=== PATIENT | female | born 1950 | race Caucasian/White ===

== ENCOUNTER → 2018-03-14 07:55 | Outpatient (CLI) | payer MEDICARE, OTHER, SELFPAY ==
[2018-03-14 09:25] LABS: Blood Urea Nitrogen 24 mg/dL (7-17); Estimated Glomerular Filt Rate > 60.0 mL/min (>60)
== END ==
PROVIDERS: PCP Internal Medicine; Visit Provider Internal Medicine
DX: E11.9 Type 2 diabetes mellitus without complications (principal); I10 Essential (primary) hypertension; E78.5 Hyperlipidemia, unspecified
CPT/HCPCS: 36415; 82565; 84520

== ENCOUNTER → 2018-03-16 13:29 | Outpatient (CLI) | payer MEDICARE, OTHER, SELFPAY ==
--- NOTE | 2018-03-16 | DI.MRI.S_ITS ---
PROCEDURE: MR MCDONALD WO/W CON INDICATIONS: 67 year-old female with palpable lower abdominal mass lesion. TECHNIQUE: Noncontrast coronal T1 spin echo and STIR, sagittal T1 spin echo with fat saturation and STIR, axial T1 spin echo and T2 fast spin echo with fat saturation. After the administration of contrast, axial/sagittal/coronal T1 spin echo with fat saturation through the pelvis. COMPARISON: [facility], CT, ABDOMEN WITH CONTRAST, 03/15/2017, 10:19. [facility], CT, ABDOMEN/PELVIS WITH CONTRAST, 09/12/2015, 8:08. FINDINGS: Skin marker denotes the site of clinical concern in the right parasymphyseal region. Image quality: Several sequences are degraded by respiratory motion. Bones: The visualized bone marrow demonstrates normal signal on all sequences. The overlying cortex appears intact. No abnormal intraosseous enhancement. There is lower lumbar spine disc degeneration. Soft tissues: At the site of clinical concern in the right parasymphyseal region, no soft tissue masses are visualized. No inguinal hernias or adenopathy. The deeper scanned muscles demonstrate normal overall bulk and internal signal. Subcutaneous tissues appear normal as well. There is mild sigmoid colon diverticulosis. Uterus and ovaries appear normal in size. Bladder wall thickness is normal. No free pelvic fluid. IMPRESSION: 1. No imaging explanation for palpable mass in the right parasymphyseal region. 2. Mild sigmoid colon diverticulosis. Dictated by: Godfrey Garcia M.D. on 03/16/2018 at 15:26 Approved by: Godfrey Garcia M.D. on 03/16/2018 at 15:36
--- NOTE | 2018-03-16 | DI.MRI.S_ITS ---
PROCEDURE: MR SHOULDER RT WO CON INDICATIONS: 67 year-old female with right shoulder pain since May 2017. TECHNIQUE: Noncontrast oblique coronal T2 fast spin echo with fat saturation, oblique sagittal T1 spin echo and T2 fast spin echo with fat saturation, axial T1 spin echo and T2 fast spin echo with fat saturation through the shoulder. COMPARISON: None. FINDINGS: Image quality: Excellent. Rotator cuff: There is 6 mm wide low-grade intrasubstance partial thickness tear involving the anterior supraspinatus tendon insertional footprint on coronal image 8 and sagittal image 7. There is background supraspinatus tendon signal heterogeneity from tendinopathy. The infraspinatus and subscapularis tendons appear intact. Sagittal images demonstrate no rotator cuff muscle atrophy. Bones and bursae: No bone marrow contusions or fractures. There is mild acromioclavicular joint degeneration, with osseous and synovial hypertrophy. The acromion demonstrates conventional anatomy, without an os acromiale. Curvilinear soft tissue ganglion cyst wraps around the anterior edge of the supraspinatus muscle, measuring 1.5 x 0.8 x 0.4 cm. Capsule and soft tissues: There is small glenohumeral joint effusion within the superior subscapularis recess. In the absence of intra-articular contrast, the labrum and glenohumeral ligaments appear intact. The long head of the biceps tendon demonstrates normal location, with linear intrasubstance signal superior to the humeral head. There is rotator interval fibrosis, obscuring the coracohumeral ligament. IMPRESSION: 1. Low-grade intrasubstance partial thickness tear involves the anterior 6 mm of the supraspinatus tendon insertional footprint, on a background of tendinopathy. 2. Mild acromioclavicular joint degeneration. 3. 1.5 cm curvilinear soft tissue ganglion cyst wraps around the anterior edge of the supraspinatus muscle. 4. Intrasubstance partial thickness tear of the intra-articular long head of the biceps tendon. 5. Rotator interval fibrosis would raise the question of adhesive capsulitis. Dictated by: Godfrey Garcia M.D. on 03/16/2018 at 14:21 Approved by: Godfrey Garcia M.D. on 03/16/2018 at 14:29
== END ==
PROVIDERS: Family Provider Internal Medicine; PCP Internal Medicine; Visit Provider Internal Medicine
DX: M75.101 Unspecified rotator cuff tear or rupture of right shoulder, not specified as traumatic (principal); M19.011 Primary osteoarthritis, right shoulder; R19.09 Other intra-abdominal and pelvic swelling, mass and lump; M67.411 Ganglion, right shoulder
CPT/HCPCS: 72197; 73221

== ENCOUNTER → 2018-09-05 07:25 | Outpatient (CLI) | payer MEDICARE, OTHER, SELFPAY ==
[2018-09-05 09:07] LABS: Hemoglobin A1C% w Est Avg Glu 5.8 % (4.0-6.0)
[2018-09-05 09:19] LABS: Alanine Aminotransferase 48 IU/L (9-52); Aspartate Aminotransferase 37 IU/L (14-36); BUN Creatinine Ratio 27.5 (6-22); Blood Urea Nitrogen 22 mg/dL (7-17); Calcium 9.6 mg/dL (8.4-10.2); Carbon Dioxide 29 mmol/L (22-32); Chloride 101 mmol/L (98-107); Cholesterol 173 mg/dL (140-199); Estimated Glomerular Filt Rate > 60.0 mL/min (>60); Glucose 118 mg/dL (80-110); HDL Cholesterol 41 mg/dL (40-60); HEMOLYSIS < 15 (0-50); LDL Cholesterol Calculated 89 mg/dL (<100); Potassium 3.9 mmol/L (3.4-5.1); Sodium 143 mmol/L (137-145); Triglycerides 216 mg/dL (35-150)
[2018-09-05 10:19] LABS: TSH w/ Reflex to FT4 4.06 uIU/mL (0.47-4.68)
== END ==
PROVIDERS: PCP Internal Medicine; Visit Provider Internal Medicine
DX: E11.9 Type 2 diabetes mellitus without complications (principal); I10 Essential (primary) hypertension; E78.5 Hyperlipidemia, unspecified; E04.1 Nontoxic single thyroid nodule
CPT/HCPCS: 36415; 80048; 80061; 83036; 84443; 84450; 84460

== ENCOUNTER → 2018-09-16 13:32 | Outpatient (CLI) | payer MEDICARE, OTHER, SELFPAY ==
--- NOTE | 2018-09-16 13:43 | DI.US.S_ITS ---
PROCEDURE: US THYROID INDICATIONS: ROUTINE TECHNIQUE: Real-time scanning was performed of the thyroid gland, with image documentation. COMPARISON: [facility], US, THYROID, 05/01/2010, 8:59. FINDINGS: Right: Thyroid lobe measures 3.8 x 1.3 x 1.8 cm, and is homogeneous in echotexture. Left: Thyroid lobe measures 3.5 x 1.6 x 1.4 cm, and is homogenous in echotexture. Isthmus: 3.0 mm thick. Nodule number: 1 Location: Right superior Size: Unchanged at 0.3 x 0.2 x 0.4 cm. Composition: Solid Echogenicity: Hypoechoic Shape: wider than tall. Margins: Smooth Echogenic foci: None Total points: 4 ACR TI-RADS category: Moderately suspicious Nodule number: 2 Location: Right inferior Size: Unchanged at 0.3 x 0.2 x 0.3 cm. Composition: Solid Echogenicity: Hypoechoic Shape: wider than tall. Margins: Smooth Echogenic foci: None Total points: 4 ACR TI-RADS category: Moderately suspicious Nodule number: 3 Location: Left superior Size: New at 0.3 x 0.2 x 0.4 cm. Composition: Solid Echogenicity: Hypoechoic Shape: wider than tall. Margins: Smooth Echogenic foci: None Total points: 4 ACR TI-RADS category: Moderately suspicious Nodule number: 4 Location: Left inferior Size: Unchanged at 0.5 x 0.4 x 0.3 cm. Composition: Cystic Echogenicity: Anechoic Shape: wider than tall. Margins: Smooth Echogenic foci: Internal punctate echogenic foci Total points: 3 ACR TI-RADS category: Mildly suspicious IMPRESSION: Stable thyroid nodules as above and there is a new nodule involving the left superior thyroid. Recommend continued followup ultrasound as detailed below. ACR TI-RADS definitions and recommendations: TI-RADS 1 (benign): 0 points. FNA not needed. TI-RADS 2 (not suspicious): 2 points. FNA not needed. TI-RADS 3 (mildly suspicious): 3 points. * FNA if 2.5 cm or larger, follow up if 1.5 cm or larger (at 1, 3, and 5 years). TI-RADS 4 (moderately suspicious): 4-6 points. * FNA if 1.5 cm or larger, follow up if 1 cm or larger (at 1, 2, 3, and 5 years). TI-RADS 5 (highly suspicious): 7 points or more. * FNA if 1 cm or larger, follow up if 0.5 cm or larger (every year for 5 years). Dictated by: Scooter BAILEY Interpreted: Doroteo Lao MD on 09/16/2018 at 15:48 Approved by: Doroteo Lao M.D. on 09/16/2018 at 19:02
== END ==
PROVIDERS: PCP Internal Medicine; Visit Provider Internal Medicine
DX: Z00.00 Encounter for general adult medical examination without abnormal findings (principal); M85.852 Other specified disorders of bone density and structure, left thigh; Z78.0 Asymptomatic menopausal state; E04.2 Nontoxic multinodular goiter; E11.9 Type 2 diabetes mellitus without complications; Z82.62 Family history of osteoporosis
CPT/HCPCS: 76536; 77080

== ENCOUNTER → 2018-10-17 14:36 | Outpatient (CLI) | payer MEDICARE, OTHER, SELFPAY ==
--- NOTE | 2018-10-17 | DI.US.S_ITS ---
PROCEDURE: US ABDOMEN COMPLETE INDICATIONS: R UPPER QUADRANT PAIN TECHNIQUE: Real-time scanning was performed of the abdominal and retroperitoneal organs, with image documentation. COMPARISON: None. FINDINGS: Liver: Liver is normal in size and homogeneous in echotexture, diffusely hyperechoic consistent with fatty infiltration. Gallbladder: The gallbladder appears normal Biliary ducts: Intrahepatic bile ducts are non-dilated. Extrahepatic bile duct caliber measures 4.0 mm. Normal is 6-7 mm or less in diameter, or 10 mm or less post-cholecystectomy. Pancreas: Visualized portions of the pancreas are sonographically normal. Spleen: Spleen is normal in size and homogeneous in echotexture. Kidneys: Kidneys are normal in size and echotexture. Right kidney measures 10.5 cm long; left kidney measures 10.9 cm long. No hydronephrosis or nephrolithiasis. No solid masses. Aorta: Visualized aorta is normal in caliber at less than 3 cm. Iliacs: Proximal common iliac arteries are normal in caliber at less than 2.5 cm. IVC: Intrahepatic inferior vena cava is patent. Miscellaneous: No free abdominal fluid. IMPRESSION: Hepatic steatosis is present, but no hepatic mass lesion or evidence of varices or ascites is found. No alternative source of right upper quadrant pain is identified. Dictated by: Max Wheeler M.D. on 10/17/2018 at 15:47 Approved by: Max Wheeler M.D. on 10/17/2018 at 15:48
== END ==
PROVIDERS: PCP Internal Medicine; Visit Provider Internal Medicine
DX: R10.11 Right upper quadrant pain (principal); K76.0 Fatty (change of) liver, not elsewhere classified
CPT/HCPCS: 76700

== ENCOUNTER → 2019-03-06 08:01 | Outpatient (CLI) | payer MEDICARE, OTHER, SELFPAY ==
[2019-03-06 09:32] LABS: Alanine Aminotransferase 46 IU/L (9-52); Aspartate Aminotransferase 33 IU/L (14-36); BUN Creatinine Ratio 21.3 (6-22); Blood Urea Nitrogen 17 mg/dL (7-17); Calcium 9.8 mg/dL (8.4-10.2); Carbon Dioxide 30 mmol/L (22-32); Chloride 100 mmol/L (98-107); Cholesterol 169 mg/dL (140-199); Estimated Glomerular Filt Rate > 60.0 mL/min (>60); Glucose 119 mg/dL (80-110); HDL Cholesterol 43 mg/dL (40-60); HEMOLYSIS < 15 (0-50); LDL Cholesterol Calculated 81 mg/dL (<100); Potassium 4.1 mmol/L (3.4-5.1); Sodium 137 mmol/L (137-145); Triglycerides 227 mg/dL (35-150)
== END ==
PROVIDERS: PCP Internal Medicine; Visit Provider Internal Medicine
DX: I10 Essential (primary) hypertension (principal); E78.5 Hyperlipidemia, unspecified
CPT/HCPCS: 36415; 80048; 80061; 84450; 84460

== ENCOUNTER → 2019-09-04 07:03 | Outpatient (CLI) | payer MEDICARE, OTHER, SELFPAY ==
--- NOTE | 2019-09-04 | DI.RAD.S_ITS ---
PROCEDURE: XR CHEST 2V INDICATIONS: COUGH TECHNIQUE: 2 views of the chest were acquired. COMPARISON: None. FINDINGS: Surgical changes and devices: None. Lungs and pleura: Lungs are clear. No pleural effusions or pneumothorax. Mediastinum: Mediastinal contours are normal. Heart size is normal. Bones and chest wall: No suspicious bony abnormalities. Soft tissues appear unremarkable. IMPRESSION: No source of cough is found. Dictated by: Max Wheeler M.D. on 09/04/2019 at 9:16 Approved by: Max Wheeler M.D. on 09/04/2019 at 9:16
[2019-09-04 08:00] LABS: Alanine Aminotransferase 43 IU/L (<35); Aspartate Aminotransferase 38 IU/L (14-36); BUN Creatinine Ratio 23.8 (6-22); Blood Urea Nitrogen 19 mg/dL (7-17); Calcium 9.9 mg/dL (8.4-10.2); Carbon Dioxide 29 mmol/L (22-32); Chloride 100 mmol/L (98-107); Cholesterol 199 mg/dL (140-199); Estimated Glomerular Filt Rate > 60.0 mL/min (>60); Glucose 118 mg/dL (80-110); HDL Cholesterol 41 mg/dL (40-60); HEMOLYSIS < 15 (0-50); LDL Cholesterol Calculated 95 mg/dL (<100); Potassium 3.8 mmol/L (3.4-5.1); Sodium 139 mmol/L (137-145); Triglycerides 314 mg/dL (35-150)
[2019-09-04 08:11] LABS: Hemoglobin A1C% w Est Avg Glu 5.7 % (4.0-6.0)
== END ==
PROVIDERS: PCP Internal Medicine; Visit Provider Internal Medicine
DX: R05 Cough (principal); I10 Essential (primary) hypertension; E11.9 Type 2 diabetes mellitus without complications; E78.5 Hyperlipidemia, unspecified
CPT/HCPCS: 36415; 71046; 80048; 80061; 83036; 84450; 84460

== ENCOUNTER → 2019-12-07 14:12 | Outpatient (ROUT) | payer MEDICARE, OTHER, SELFPAY ==
[2019-12-07 16:14] LABS: BUN Creatinine Ratio 26.3 (6-22); Blood Urea Nitrogen 21 mg/dL (7-17); Calcium 10.3 mg/dL (8.4-10.2); Carbon Dioxide 32 mmol/L (22-32); Chloride 99 mmol/L (98-107); Estimated Glomerular Filt Rate > 60.0 mL/min (>60); Glucose 117 mg/dL (80-110); HEMOLYSIS < 15 (0-50); Potassium 4.1 mmol/L (3.4-5.1); Sodium 138 mmol/L (137-145)
== END ==
PROVIDERS: PCP Internal Medicine; Visit Provider Internal Medicine
DX: E11.9 Type 2 diabetes mellitus without complications (principal); R10.11 Right upper quadrant pain
CPT/HCPCS: 80048; 83036

== ENCOUNTER → 2019-12-11 10:23 | Outpatient (CLI) | payer MEDICARE, OTHER, SELFPAY ==
--- NOTE | 2019-12-11 | DI.CT.S_ITS ---
PROCEDURE: CT ABDOMEN W CON INDICATIONS: Right upper quadrant pain TECHNIQUE: After the administration of oral and intravenous contrast, 5 mm thick sections acquired from the diaphragms to the iliac crests. 5 mm thick coronal and sagittal reformats were acquired. For radiation dose reduction, the following was used: automated exposure control, adjustment of mA and/or kV according to patient size. COMPARISON: [facility], CT, ABDOMEN WITH CONTRAST, 03/15/2017, 10:19. FINDINGS: Image quality: Excellent. Lung bases: Lung bases are clear. Heart size is normal. Solid organs: Liver is normal in size and enhancement. Gallbladder appears normal. Biliary system is non dilated. Pancreas enhances normally. Spleen is normal in size and enhancement. No adrenal nodules. Kidneys are normal in size, without hydronephrosis. Peritoneum and bowel: Contrast enhanced bowel loops appear normal in caliber. No free fluid or air. Nodes and vessels: No retroperitoneal or mesenteric adenopathy by size criteria. Aorta and inferior vena cava are normal in size. Bones: No suspicious bony lesions. No vertebral body compression fractures. Miscellaneous: No ventral hernias. IMPRESSION: Normal for age, source of current reported right upper quadrant pain is not identified. Dictated by: Max Wheeler M.D. on 12/11/2019 at 15:14 Approved by: Max Wheeler M.D. on 12/11/2019 at 15:15
== END ==
PROVIDERS: PCP Internal Medicine; Referring Provider Internal Medicine; Visit Provider Internal Medicine
DX: R10.11 Right upper quadrant pain (principal)
CPT/HCPCS: 74160; Q9967

== ENCOUNTER → 2020-07-02 08:21 | Outpatient (CLI) | payer MEDICARE, OTHER, SELFPAY ==
[2020-07-02 09:54] LABS: Alanine Aminotransferase 40 IU/L (<35); Albumin 4.3 g/dL (3.5-5.0); Albumin Globulin Ratio 1.6 (1.0-2.8); Alkaline Phosphatase 44 U/L (38-126); Aspartate Aminotransferase 32 IU/L (14-36); BUN Creatinine Ratio 28.8 (6-22); Bilirubin Total 1.1 mg/dL (0.2-1.3); Blood Urea Nitrogen 23 mg/dL (7-17); Calcium 9.8 mg/dL (8.4-10.2); Carbon Dioxide 29 mmol/L (22-32); Chloride 102 mmol/L (98-107); Cholesterol 153 mg/dL (140-199); Estimated Glomerular Filt Rate > 60.0 mL/min (>60); Globulin 2.7 g/dL (1.7-4.1); Glucose 109 mg/dL (80-110); HDL Cholesterol 41 mg/dL (40-60); HEMOLYSIS < 15 (0-50); LDL Cholesterol Calculated 66 mg/dL (<100); Potassium 4.3 mmol/L (3.4-5.1); Sodium 138 mmol/L (137-145); Triglycerides 228 mg/dL (35-150)
[2020-07-02 10:49] LABS: Hemoglobin A1C% w Est Avg Glu 5.7 % (4.0-6.0)
== END ==
PROVIDERS: PCP Internal Medicine; Referring Provider Internal Medicine; Visit Provider Internal Medicine
DX: I10 Essential (primary) hypertension (principal); E11.9 Type 2 diabetes mellitus without complications; E78.5 Hyperlipidemia, unspecified
CPT/HCPCS: 36415; 80053; 80061; 83036

== ENCOUNTER → 2020-10-31 12:41 | Outpatient (CLI) | payer MEDICARE, OTHER, SELFPAY ==
[2020-10-31] MEDS: COVID-19 VACC #1, MRNA(MOD) 100 MCG/0.5 ML VIAL IM (12:47)
== END ==
PROVIDERS: PCP Internal Medicine; Visit Provider Internal Medicine
DX: Z23 Encounter for immunization (principal)
CPT/HCPCS: 0011A; 91301

== ENCOUNTER → 2020-11-28 12:26 | Outpatient (CLI) | payer MEDICARE, OTHER, SELFPAY ==
[2020-11-28] MEDS: COVID-19 VACC #2, MRNA(MOD) 100 MCG/0.5 ML VIAL IM (12:33)
== END ==
PROVIDERS: PCP Internal Medicine; Visit Provider Internal Medicine
DX: Z23 Encounter for immunization (principal)
CPT/HCPCS: 0012A; 91301

== ENCOUNTER → 2021-01-20 08:00 | Outpatient (CLI) | payer MEDICARE, OTHER, SELFPAY ==
[2021-01-20 09:01] LABS: Hemoglobin A1C% w Est Avg Glu 5.6 % (4.0-6.0)
[2021-01-20 09:17] LABS: Alanine Aminotransferase 37 IU/L (<35); Albumin 4.3 g/dL (3.5-5.0); Albumin Globulin Ratio 1.7 (1.0-2.8); Alkaline Phosphatase 44 U/L (38-126); Aspartate Aminotransferase 34 IU/L (14-36); BUN Creatinine Ratio 23.1 (6-22); Bilirubin Total 1.2 mg/dL (0.2-1.3); Blood Urea Nitrogen 18 mg/dL (7-17); Calcium 9.9 mg/dL (8.4-10.2); Carbon Dioxide 29 mmol/L (22-32); Chloride 101 mmol/L (98-107); Cholesterol 164 mg/dL (140-199); Estimated Glomerular Filt Rate > 60.0 mL/min (>60); Globulin 2.6 g/dL (1.7-4.1); Glucose 111 mg/dL (80-110); HDL Cholesterol 46 mg/dL (40-60); HEMOLYSIS < 15 (0-50); LDL Cholesterol Calculated 70 mg/dL (<100); Potassium 4.5 mmol/L (3.4-5.1); Sodium 136 mmol/L (137-145); Total Protein 6.9 g/dL (6.3-8.2); Triglycerides 241 mg/dL (35-150)
[2021-01-20 10:48] LABS: Creatinine Urine Random 141.3 mg/dL
[2021-01-20 10:54] LABS: Microalbumin Urine Random < 0.6 mg/dL (0-1.6)
== END ==
PROVIDERS: PCP Internal Medicine; Referring Provider Internal Medicine; Visit Provider Internal Medicine
DX: E11.9 Type 2 diabetes mellitus without complications (principal); I10 Essential (primary) hypertension; E78.5 Hyperlipidemia, unspecified
CPT/HCPCS: 36415; 80053; 80061; 82043; 82570; 83036

== ENCOUNTER → 2021-04-14 11:44 | Outpatient (CLI) | payer MEDICARE, OTHER, SELFPAY ==
[2021-04-14 13:24] LABS: COVID19 -Nasal RAPID Negative (Negative)
== END ==
PROVIDERS: PCP Internal Medicine; Visit Provider Physician Assistant
DX: Z01.812 Encounter for preprocedural laboratory examination (principal); Z20.822 Contact with and (suspected) exposure to COVID-19
CPT/HCPCS: 87635; C9803

== ENCOUNTER 2021-04-15 07:50 | Day surgery (SDC) | payer MEDICARE, OTHER, SELFPAY ==
--- NOTE | 2021-04-15 | PATH_ITS ---
[facility] Accession Number: [id number] . 01 Material submitted: . colon - TRANSVERSE COLON POLYP . 02 Diagnosis: Transverse Colon Polyp, Biopsy: Tubular adenoma. MRV 04/18/2021 1639 Local . 02 Electronically signed: . Chino Hadley MD, PhD, Pathologist NPI- [id number] . 01 Gross description: . TRANSVERSE COLON POLYP: Received in formalin are 3 fragment(s) of buck, soft tissue measuring 0.4 x 0.2 x 0.2 cm to 0.2 x 0.1 x 0.1 cm submitted entirely in 1 cassette(s) /KAMRON 04/16/2021 0452 Local . 02 Pathologist provided ICD-10: D12.3 . 02 CPT . 689952 Performed at: 01 [facility] [address] [id number] MD Evans Ling MD Phone: [phone] Performed at: [address] [facility] [address] [place], [place] [id number] MD Norah Cao MD Phone: [phone]
[2021-04-15 08:14] VITALS: BP 121/83; PULSE 88; RESP 20; TEMP 36.4; O2SAT 98; BMI 26.5
[2021-04-15] MEDS: LACTATED RINGERS 1,000 ML 100 ML IV (08:43)
--- NOTE | 2021-04-15 09:37 | PM.HP.1 ---
History of Present Illness History of Present Illness Date Patient Seen: 04/15/21 Time Patient Seen: 09:38 Chief complaint: SDC Narrative: Asymptomatic. Here for screening for colon ca. Patient History Medical History Asthma GERD (gastroesophageal reflux disease) GERD (gastroesophageal reflux disease) Hyperlipidemia Hypertension Family & Social History Family History Mother Heart disease Brother Diabetes mellitus Stroke Father Leukemia Social History: household members family Tobacco & Substance use: Smoking Status Never smoker alcohol intake frequency holiday/special occasion Substance Use Type does not use Meds Home Medications and Allergies Home Medications Medication Instructions Recorded Confirmed Type CHOLECALCIFEROL (VITAMIN D) 2,000 units PO TID #0 10/05/12 04/15/21 History COENZYME Q10/VITAMIN E (CO-Q-10 300 mg PO QDAY #0 10/05/12 History 100mg) [CALCIUM/VITAMIN D] BID #0 10/05/12 10/20/18 History ascorbic acid (vitamin C) 500 mg 500 mg PO EVERY OTHER DAY #0 10/05/12 04/15/21 History tablet aspirin 81 mg tablet,delayed 81 mg PO QDAY #0 10/05/12 04/15/21 History release cetirizine 10 mg tablet 10 mg PO QDAY #0 10/05/12 04/15/21 History albuterol sulfate 90 mcg/actuation 1 puff INH Q4HP #1 10/06/12 04/15/21 Rx aerosol inhaler (Ventolin HFA) CALCIUM CITRATE/VITAMIN D3 1 tab PO BID #0 10/10/12 04/15/21 History (Citracal-Vit D 250 MG-200 Tab) [CHAIM RED KRILL OIL] 900 mg QDAY #0 10/11/12 History potassium chloride 20 mEq 20 meq PO BID #180 11/18/12 04/15/21 Rx tablet,extended release(part/cryst) (Klor-Con M) atorvastatin 20 mg tablet (Lipitor) 20 mg PO QDAY #90 11/30/12 04/15/21 Rx lisinopril 10 1 tab PO QDAY #90 11/30/12 04/15/21 Rx mg-hydrochlorothiazide 12.5 mg tablet (Zestoretic) OMEPRAZOLE 20 mg PO QDAY #90 01/02/13 10/20/18 Rx metformin 500 mg tablet 500 mg PO BID 10/20/18 04/15/21 History Allergies Allergy/AdvReac Type Severity Reaction Status Date / Time scallops [SCALLOPS] AdvReac Intermediate gi upset Verified 04/15/21 08:38 codeine [CODEINE] AdvReac Mild NAUSEA Verified 04/15/21 08:38 Review of Systems Review of Systems ROS: Yes All systems reviewed with the patient and are negative except as otherwise documented Exam Vital Signs (past 8 hours): - 04/15/21 08:14 Temperature 97.6 F Pulse Rate 88 Respiratory Rate 20 Blood Pressure 121/83 Pulse Oximetry 98 Oxygen Delivery Method Room Air Const General: cooperative and comfortable Orientation: alert HENIA Head: normocephalic Ears: external ears normal Nose: external nose normal Face and sinus: normal facial exam Mouth: oral mucosae normal Eyes General: appearance normal, both eyes and all related structures Neck Neck: normal visual inspection Chest Chest: normal inspection of the chest Resp Effort & Inspection: normal respiratory effort Auscultation: clear to auscultation bilaterally Cardio Rate: regular rate Rhythm: regular rhythm Heart Sounds: no murmurs GI Inspection: normal to inspection Palpation: soft and No tender Auscultation: normal bowel sounds Skin General: no rashes or lesions noted and No jaundice Neuro General: patient alert and moves all extremities Cognition: normal cognition Speech: speech normal Extrem General: no pedal edema Psych Appearance: grossly normal Assessment & Plan Assessment & Plan narrative: 70yo female indicated for CRC screening. colonoscopy is planned.
--- NOTE | 2021-04-15 09:39 | PM.PREOP ---
Pre-operative Note COVID-19 COVID-19 status: Negative Result date/Date tested (Pos, Neg/Pending): 04/14/21 Interval Note History & Physical reviewed/Exam performed by Physician: Yes Changes to H&P: No ASA Class (for procedural sedation): II
[2021-04-15] MEDS: fentaNYL 250 MCG/5 ML INJ IV (09:47)
[2021-04-15] MEDS: MIDAZOLAM 5 MG/5 ML VIAL IV (09:47)
--- NOTE | 2021-04-15 10:11 | PM.OP.ENDO ---
Operative Date/Time/Diagnoses Date of procedure: 04/15/21 Time of procedure: 10:11 Pre-op diagnosis: screening Post-op diagnosis: same Procedure & Clinicians Study performed: colonoscopy with hot snare polypectomy Same procedure as scheduled: Yes Indications: Colon cancer screening Surgeon: Gino Pineda Procedure Notes SCOAP/Timeout: Done Procedure in detail: After the risks and benefits were explained, written and verbal informed consent was obtained. The patient was brought into the procedure room and placed into the left lateral decubitus position. Conscious sedation medication was applied as per nursing documentation. Digital rectal examination was accomplished. The scope was introduced into the patient and advanced under direct visualization to the cecum as identified by the appendiceal orifice and ileocecal valve. The scope was slowly withdrawn to carefully examine the mucosa for any defects or lesions. Comprehensive imaging was accomplished throughout the rectum including the dentate line. The colon was decompressed, the scope was then removed from the patient who tolerated the procedure well. bowel prep adequate 75mcg fentanyl and 3mg versed Scope withdrawal time: 9min Sedation minutes: 23 Complications: none Impression: There was some mild diverticulosis in the left colon. There was a small 5-6 mm sessile polyp in the transverse removed with hot snare. Mild internal hemorrhoids were noted on direct views. Endoscopic diagnosis 1. Colon polyp 2. Diverticulosis 3. Hemorrhoids Post-procedure Plan for aftercare: 1. Await histology. 2. Repeat colonoscopy will likely be suggested for 5 years time. Disposition: PACU
[2021-04-15 10:15] VITALS: BP 127/86; PULSE 85; RESP 15; TEMP 36.4; O2SAT 98
[2021-04-15 10:20] VITALS: BP 133/84; PULSE 86; RESP 17; TEMP 36.6; O2SAT 98
[2021-04-15 10:25] VITALS: BP 130/77; PULSE 82; RESP 15; O2SAT 97
== END 2021-04-15 10:27 | disposition home or self-care (01) ==
PROVIDERS: PCP Internal Medicine; Referring Provider Internal Medicine; Visit Provider Internal Medicine Gastroenterology
PROC: 0DJD8ZZ Inspection of Lower Intestinal Tract, Via Natural or Artificial Opening Endoscopic (ICD-10-PCS; CPT 45378; principal; 2021-04-15 09:00)
DX: Z12.11 Encounter for screening for malignant neoplasm of colon (principal); J45.909 Unspecified asthma, uncomplicated; K21.9 Gastro-esophageal reflux disease without esophagitis; E78.5 Hyperlipidemia, unspecified; I10 Essential (primary) hypertension; K64.8 Other hemorrhoids; K57.30 Diverticulosis of large intestine without perforation or abscess without bleeding; D12.3 Benign neoplasm of transverse colon
CPT/HCPCS: 45385; J2250; J3010

== ENCOUNTER → 2021-11-18 10:32 | Outpatient (CLI) | payer OTHER, SELFPAY ==
--- NOTE | 2021-11-18 | DI.MG.S_ITS ---
BILATERAL DIGITAL SCREENING MAMMOGRAM 3D/2D WITH CAD: 11/18/2021 CLINICAL: Routine screening. Comparison is made to exams dated: 09/09/2012 mammogram, 01/16/2011 mammogram, and 01/15/2010 mammogram - outside location. There are scattered fibroglandular elements in both breasts. Current study was also evaluated with a Computer Aided Detection (CAD) system. There are benign calcifications in the right breast. There also are benign vascular calcifications in both breasts. No significant masses, calcifications, or other findings are seen in either breast. There has been no significant interval change. IMPRESSION: BENIGN There is no mammographic evidence of malignancy. A 1 year screening mammogram is recommended. This exam was interpreted at Station ID: [id number]. NOTE: For mammograms, a report in lay terms will be sent to the patient. Approximately 15% of breast malignancies will not be visualized mammographically. In the management of a palpable breast mass, a negative mammogram must not discourage biopsy of a clinically suspicious lesion. Electronically Signed By: Marisela sánchez/kylah:11/18/2021 12:07:08 letter sent: Normal Exam ACR BI-RADS Category 2: Benign Finding(s) 3342F
== END ==
PROVIDERS: PCP Internal Medicine; Referring Provider Internal Medicine; Visit Provider Internal Medicine
DX: Z12.31 Encounter for screening mammogram for malignant neoplasm of breast (principal)
CPT/HCPCS: 77063; 77067

== ENCOUNTER → 2023-10-15 10:35 | Outpatient (CLI) | payer MEDICARE, SELFPAY ==
--- NOTE | 2023-10-15 10:37 | DI.RAD.S_ITS ---
Bone Density Report Name: JERILYN MONTES DE OCA Age: 73 Sex: Female Ethnicity: White Date of : 1950 Indication: osteopenia; Referring Provider: YULIA LACEY Study: Bone densitometry was performed. Exam Date: October 15, 2023 Accession number: [id number] Bone Density: Region BMD T-score Z-score Classification AP Spine(L1-L4) 0.965 -0.7 1.7 Normal Femoral Neck (Left) 0.631 -2.0 0.1 Osteopenia Total Hip (Left) 0.751 -1.6 0.2 Osteopenia Femoral Neck (Right) 0.647 -1.8 0.3 Osteopenia Total Hip (Right) 0.772 -1.4 0.4 Osteopenia Total Hip Mean 0.761 -1.5 0.3 Osteopenia World Health Organization criteria for BMD impression classify patients as: Normal (T-score at or above -1.0), Osteopenia (T-score between -1.0 and -2.5), or Osteoporosis (T-score at or below -2.5). 10-year Fracture Risk(1): Major Osteoporotic Fracture 13% Hip Fracture 3.1% Reported Risk Factors: [place] (), Neck BMD=0.631, BMI=27.5 (1) FRAX(R) Version 3.08. Fracture probability calculated for an untreated patient. Fracture probability may be lower if the patient has received treatment. Previous Exams: -- Region Exam Age BMD T-score BMD Change BMD Change Date g/cm2 vs Baseline vs Previous -- AP Spine (L1-L4) 10/15/2023 73 0.965 -0.7 -0.026 (-2.6%)# -0.026 (-2.6%)# 09/16/2018 67 0.991 -0.5 Total Hip(Left) 10/15/2023 73 0.751 -1.6 0.021 (2.8%)# 0.021 (2.8%)# 09/16/2018 67 0.730 -1.7 Total Hip(Right) 10/15/2023 73 0.772 -1.4 -0.010 (-1.3%)# -0.010 (-1.3%)# 09/16/2018 67 0.781 -1.3 -- *Denotes significance at 95% confidence level, LSC for AP Spine = 0.022 g/cm2, LSC for Total Hip = 0.027 g/cm2 # Denotes dissimilar scan types or analysis methods Impression: The patient has low bone mass, based on the Left Femoral Neck T-score. The patient has an estimated ten-year risk of hip fracture of 3.1% and an estimated ten-year risk of major fracture of 13%, based on the WHO FRAX algorithm. No significant bone loss was observed. Discussion: BONE DENSITY IS LOW AT ONE OR MORE SKELETAL SITES. THE PATIENT'S BMD AND CLINICAL RISK FACTORS CONTRIBUTE TO THIS PATIENT'S INCREASED RISK OF FRACTURE. This patient's lowest T-score is low at one or more skeletal sites. It meets the World Health Organization's (WHO) criteria for low bone mass (T-score between -1.0 and -2.5). The patient's 10-year risk of hip fracture as calculated by FRAX exceeds the threshold where pharmacological therapy is recommended by the National Osteoporosis Foundation (NOF). However, all treatment decisions require clinical judgment and consideration of individual patient factors, including patient preferences, comorbidities, previous drug use, risk factors not captured in the FRAX model (e.g., frailty, falls, vitamin D deficiency, increased bone turnover, interval significant decline in bone density) and possible under or overestimation of fracture risk by FRAX. The patient should follow a healthful lifestyle (good nutrition with adequate calcium and vitamin D, and appropriate weight-bearing exercise). Follow-Up: Consider a repeat BMD and Vertebral Fracture Assessment (VFA) exam in 2 years or sooner if medically necessary, to reassess this patient's status. Reported by: PETER VALERO M.D. on 10/15/2023 11:24:00 AM.
--- NOTE | 2023-10-15 10:38 | DI.US.S_ITS ---
PROCEDURE: US THYROID INDICATIONS: thyroid nodules TECHNIQUE: Real-time scanning was performed of the thyroid gland, with image documentation. COMPARISON: [facility], [place], US THYROID, 09/16/2018, 14:45. FINDINGS: Right: Thyroid lobe measures 4.2 x 1.7 x 1.2 cm, and is homogeneous in echotexture. Left: Thyroid lobe measures 3.3 x 1.5 x 1.7 cm, and is homogenous in echotexture. Isthmus: 0.4 cm thick. Multiple sub 5 millimeter bilateral lesions, which probably represents small cysts or colloid cysts (TI-RADS 1). No suspicious features to warrant follow-up. No significant interval growth. IMPRESSION: No significant interval change in benign thyroid lesions. No further follow-up is indicated per ACR consensus guidelines. ACR TI-RADS definitions and recommendations: TI-RADS 1 (benign): 0 points. FNA not needed. TI-RADS 2 (not suspicious): 2 points. FNA not needed. TI-RADS 3 (mildly suspicious): 3 points. * FNA if 2.5 cm or larger, follow up if 1.5 cm or larger (at 1, 3, and 5 years). TI-RADS 4 (moderately suspicious): 4-6 points. * FNA if 1.5 cm or larger, follow up if 1 cm or larger (at 1, 2, 3, and 5 years). TI-RADS 5 (highly suspicious): 7 points or more. * FNA if 1 cm or larger, follow up if 0.5 cm or larger (every year for 5 years). Dictated by: Gumaro Whittington M.D. on 10/15/2023 at 13:05 Approved by: Gumaro Whittington M.D. on 10/15/2023 at 13:15
== END ==
LOC: RAD 10:36
PROVIDERS: PCP Internal Medicine; Referring Provider Internal Medicine; Visit Provider Internal Medicine
DX: M85.852 Other specified disorders of bone density and structure, left thigh (principal); E04.2 Nontoxic multinodular goiter; E07.9 Disorder of thyroid, unspecified; Z78.0 Asymptomatic menopausal state
CPT/HCPCS: 76536; 77080

== ENCOUNTER → 2023-11-29 14:51 | Outpatient (CLI) | payer MEDICARE, SELFPAY ==
--- NOTE | 2023-11-29 14:57 | DI.MG.S_ITS ---
BILATERAL DIGITAL SCREENING MAMMOGRAM 3D/2D WITH CAD: 11/29/2023 CLINICAL: Routine screening. Comparison is made to exams dated: 11/18/2021 mammogram - [facility], 09/09/2012 mammogram, 01/16/2011 mammogram, and 01/15/2010 mammogram - outside location. There are scattered areas of fibroglandular density in both breasts (category b / 25%-50% glandular tissue). Current study was also evaluated with a Computer Aided Detection (CAD) system. There are benign calcifications in the right breast. There also are benign vascular calcifications in both breasts. No significant masses, calcifications, or other findings are seen in either breast. There has been no significant interval change. IMPRESSION: BENIGN There is no mammographic evidence of malignancy. A 1 year screening mammogram is recommended. Based on the Tyrer Cuzick model (a risk assessment model) the patient's lifetime risk is 3.0% and her 10 year risk is 3.0%. According to the ACR, ACS, and NCCN guidelines, an annual breast MRI exam along with mammogram is recommended if the patient's lifetime risk is 20% or greater. This exam was interpreted at Station ID: [id number]. NOTE: For mammograms, a report in lay terms will be sent to the patient. Approximately 15% of breast malignancies will not be visualized mammographically. In the management of a palpable breast mass, a negative mammogram must not discourage biopsy of a clinically suspicious lesion. Electronically Signed By: Mark fink/kylah:11/30/2023 09:46:49 letter sent: Normal Exam ACR BI-RADS Category 2: Benign Finding(s) [id number]
== END ==
PROVIDERS: Referring Provider Internal Medicine; Visit Provider Internal Medicine
DX: Z12.31 Encounter for screening mammogram for malignant neoplasm of breast (principal); R92.323 Mammographic fibroglandular density, bilateral breasts
CPT/HCPCS: 77063; 77067

== ENCOUNTER → 2024-10-27 08:31 | Outpatient (CLI) | payer MEDICARE, SELFPAY ==
--- NOTE | 2024-10-27 08:33 | DI.US.S_ITS ---
PROCEDURE: US ABDOMEN LIMITED INDICATIONS: INTERMITTENT CHRONIC RIGHT UPPER QUADRANT PAIN TECHNIQUE: Real-time focused scanning was performed of the abdomen, with image documentation. COMPARISON: [facility], CT, CT ABDOMEN W CON, 12/11/2019, 11:41. [facility], US, US ABDOMEN COMPLETE, 10/17/2018, 15:08. FINDINGS: The liver demonstrates normal size. The liver demonstrates generalized moderately increased echogenicity. This decreases ultrasound sensitivity for detection of hepatic masses. No findings of gallstones or sludge are seen. The gallbladder wall is not thickened, measuring 3 mm or less. No specific pericholecystic fluid is seen. The sonographic Jeronimo sign is negative. There is no biliary dilatation, the common bile duct measures 4-5 mm. The pancreatic duct measures up to 3.3 mm. The visualized pancreas is otherwise unremarkable. At the area of pain within the right upper quadrant, there is prominent bowel seen, with apparent viral wall thickening. Reduced peristalsis can be seen. IMPRESSION: The gallbladder demonstrates a normal sonographic appearance. No biliary dilatation is seen. At the site of pain, there is apparent thick-walled bowel, which may be related to the distal stomach. - If clinically appropriate, please consider a follow-up CT with IV and oral contrast. The liver demonstrates increased echogenicity. This finding is nonspecific, yet it is most commonly attributed to fatty infiltration. Dictated by: Mitchell Varma M.D. on 10/27/2024 at 9:47 Approved by: Mitchell Varma M.D. on 10/27/2024 at 9:49
== END ==
PROVIDERS: PCP Internal Medicine; Referring Provider Internal Medicine; Visit Provider Internal Medicine
DX: R10.11 Right upper quadrant pain (principal); E04.2 Nontoxic multinodular goiter; R93.3 Abnormal findings on diagnostic imaging of other parts of digestive tract
CPT/HCPCS: 76705

== ENCOUNTER → 2024-11-14 07:28 | Outpatient (CLI) | payer MEDICARE, SELFPAY ==
--- NOTE | 2024-11-14 07:30 | DI.CT.S_ITS ---
PROCEDURE: CT ABDOMEN PELVIS W CON INDICATIONS: RUQ PAIN TECHNIQUE: After the administration of intravenous contrast, axial sections acquired from the lung bases to the pubic symphysis. Coronal and sagittal reformats were performed. For radiation dose reduction, the following was used: automated exposure control, adjustment of mA and/or kV according to patient size. COMPARISON: [facility], US, US ABDOMEN LIMITED, 10/27/2024, 8:52. [facility], CT, CT ABDOMEN W CON, 12/11/2019, 11:41. [facility], CT, ABDOMEN/PELVIS WITH CONTRAST, 09/12/2015, 8:08. FINDINGS: Image quality: Diagnostic. Lower Chest: Right lower lobe pulmonary nodule measuring 0.5 cm, (5/4), unchanged since 2014. Left lower lobe pulmonary nodule measuring 0.4 cm, (5/16), also unchanged. ABDOMEN: Liver: No solid mass. Hepatic steatosis. Gallbladder: No radiopaque gallstones or wall thickening. No pericholecystic fluid. Biliary ducts: No biliary dilation. Pancreas: No ductal dilation. No peripancreatic fluid collection. Spleen: Size is within normal limits. Adrenal Glands: No adrenal nodules. Kidneys and Ureters: No hydronephrosis. No solid mass. No complex renal cystic lesion which requires follow up. Stomach and Bowel: Normal colonic caliber, without significant wall thickening. Diverticulosis. No diverticulitis. Normal appendix. No small bowel obstruction. Stomach is decompressed. Peritoneum: No abnormal intraperitoneal fluid. No free air. Ventral Wall: No significant ventral hernia. Abdominal Nodes: No retroperitoneal or mesenteric adenopathy by size criteria. Vessels: Aorta and inferior vena cava are normal in size. PELVIS: Pelvic Organs: Anteverted uterus. Bladder: No bladder wall thickening. No stone. Pelvic Nodes: No enlarged lymph nodes. Miscellaneous: No inguinal hernias are seen. Bones: No aggressive osseous abnormality. Scoliosis. IMPRESSION: No acute inflammatory process demonstrated. Diverticulosis. Hepatic steatosis. Dictated by: Wiley Overton M.D. on 11/14/2024 at 13:04 Approved by: Wiley Overton M.D. on 11/14/2024 at 13:12
[2024-11-14 07:51] LABS: Estimated Glomerular Filt Rate > 60 mL/min (>60)
== END ==
PROVIDERS: Radiology Diagnostic Radiology; PCP Internal Medicine; Referring Provider Physician Assistant; Visit Provider Physician Assistant
DX: K57.90 Diverticulosis of intestine, part unspecified, without perforation or abscess without bleeding (principal); K76.0 Fatty (change of) liver, not elsewhere classified; R10.11 Right upper quadrant pain; R91.8 Other nonspecific abnormal finding of lung field; M41.9 Scoliosis, unspecified
CPT/HCPCS: 36415; 74177; 82565; Q9967